=== PATIENT | male | born 1950 ===

== ENCOUNTER 2025-02-09 11:13 | Outpatient (CLI) | payer OTHER, SELFPAY ==
--- NOTE | 2025-02-09 11:27 | USCV_ITS ---
Rajendra Price Age: 74 Gender: M : 1950 Exam Date: 02/09/2025 11:50 Ordering Phys: Joey Tucker Technologist: Exam Location: [facility] [place] Indication: ef pace wire BP: 140 / 80 HR: 73 Rhythm: Sinus Technical Quality: Adequate MEASUREMENTS (Male / Female) Normal Values 2D ECHO LV Diastolic Diameter PLAX 4.5 cm 4.2 - 5.9 / 3.9 - 5.3 cm IVS Diastolic Thickness 1.6 cm 0.6 - 1.0 / 0.6 - 0.9 cm IVS Systolic Thickness 2.1 cm LVPW Diastolic Thickness 1.4 cm 0.6 - 1.0 / 0.6 - 0.9 cm LVPW Systolic Thickness 1.9 cm LVOT Diameter 2.5 cm LV Ejection Fraction 2D Teich 61.9 % LV Ejection Fraction MOD 4C 74.2 % LV Ejection Fraction MOD 2C 70.5 % LV Ejection Fraction 2C AL 70.5 % LA Diameter 3.8 cm RA Systolic Volume 4C AL 47.2 ml RA Systolic Volume 4C MOD 45.5 ml Aorta at Sinotubular Diameter 2.9 cm IVC Diameter 3.0 cm M-MODE LA Ao Ratio MM 1.4 AV Cusp Separation MM 2.6 cm DOPPLER AV Peak Velocity 128.0 cm/s LVOT Peak Velocity 94.0 cm/s AV Area Cont Eq vti 3.9 cm squared AV Area Cont Eq pk 3.6 cm squared MV Peak Velocity 132.0 cm/s MV Area PHT 3.8 cm squared Mitral E to A Ratio 0.6 TV Peak Velocity 243.0 cm/s TR Peak Velocity 261.0 cm/s TR Peak Gradient 27.2 mmHg TV Peak E Velocity 120.0 cm/s PV Peak Velocity 114.0 cm/s FINDINGS Left Ventricle Normal left ventricular size and systolic function, EF 55% (visual). Mild to moderate concentric left ventricular hypertrophy. Abnormal septal motion consistent with pacemaker. Grade I/IV diastolic dysfunction (abnormal relaxation filling pattern), normal to mildly elevated filling pressures. Right Ventricle Normal right ventricular size and systolic function. Right Atrium Normal right atrial size. Catheter/pacemaker wire in the right atrial cavity. Left Atrium Normal left atrial size. IA Septum Normal appearance of the interatrial septum. Mitral Valve Trace mitral valve regurgitation. Aortic Valve No gross abnormalities noted Tricuspid Valve Trace tricuspid valve regurgitation. Pulmonic Valve Pulmonic valve not well visualized. Pericardium No pericardial effusion. Aorta Normal aortic annulus size. IVC Inferior vena cava not visualized. CONCLUSIONS Normal left ventricular size and systolic function, EF 55% (visual). Mild to moderate concentric left ventricular hypertrophy. Abnormal septal motion consistent with pacemaker. Grade I/IV diastolic dysfunction (abnormal relaxation filling pattern), normal to mildly elevated filling pressures. Trace mitral valve regurgitation. Trace tricuspid valve regurgitation. There is no pericardial effusion. There are no intracardiac masses. No similar previous studies are available for comparison Dr Kevin Leija MD [facility] (Electronically Signed) Final Date: 10 February 2025 07:57 S
== END 2025-02-09 11:14 | disposition home or self-care (01) ==
PROVIDERS: Visit Provider Chiropractor
DX: I49.3 Ventricular premature depolarization (principal); I51.7 Cardiomegaly; I34.0 Nonrheumatic mitral (valve) insufficiency; I36.1 Nonrheumatic tricuspid (valve) insufficiency; I51.89 Other ill-defined heart diseases
CPT/HCPCS: 93306